=== PATIENT | male | born 1960 | race Caucasian/White ===

== ENCOUNTER 2019-02-03 09:15 | Inpatient (IN) ==
[2019-01-21 10:08] LABS: Basophils # 0.1 10*3/uL (0.0-0.2); Basophils % 0.7 % (0.0-0.8); Eosinophils # 0.2 10*3/uL (0.0-0.87); Hematocrit 38.5 VOL% (42.0-52.0); Hemoglobin 12.5 GM/DL (14.0-18.0); Immature Granulocytes % 0.5 %; Immature Granulocytes Absolute 0.05 #; Lymphocytes # 0.9 10*3/uL (1.4-4.0); Lymphocytes % 9.1 % (21.2-54.2); Mean Corpuscular HGB Conc 32.5 GM/DL (32-36); Mean Corpuscular Volume 91.9 FL (87-102); Mean Platelet Volume 9.8 FL (9.6-12.0); Monocytes % 6.8 % (1.7-12.7); Neutrophils % 80.9 % (38.7-73.9); Platelet Count 376 T/CUMM (130-400); Red Blood Count 4.19 MC/CUMM (3.8-5.5); Red Cell Distribution Width 13.6 % (9.3-17.3); White Blood Count 9.9 T/CUMM (4-12)
[2019-01-21 11:01] LABS: Calcium 9.1 MG/DL (8.5-10.1); Osmolality,Calculated 284.9 MOS/KG (273-304)
[~2019-02-03 09:15] MED LIST: CLINDAMYCIN INJ 600 MG in PREMIX 1 EACH IV ONE
[2019-02-03] MEDS ORDERED: ALBUTEROL/IPRATROPIUM 3 ML NEB RESP TX ONE (09:40)
[2019-02-03] MEDS ORDERED: FAMOTIDINE 20 MG TABLET PO ONE (09:40)
[2019-02-03] MEDS ORDERED: DIAZEPAM 5 MG TABLET PO ONE (09:40)
[2019-02-03] MEDS ORDERED: CLINDAMYCIN INJ 50 ML IV ONE (09:59)
[2019-02-03] MEDS ORDERED: SODIUM CHLORIDE 0.9% 250 ML IV SCH (10:00)
[2019-02-03] MEDS ORDERED: FAMOTIDINE 20 MG TABLET ONE (10:00)
[2019-02-03] MEDS ORDERED: DIAZEPAM 5 MG TABLET ONE (10:00)
[2019-02-03] MEDS ORDERED: ALBUTEROL 2.5 MG/3 ML NEB RESP TX PRN (13:50)
[2019-02-03] MEDS ORDERED: DEXTROSE 50% 25 GM/50 ML VIAL IV PRN (13:51)
[2019-02-03] MEDS ORDERED: GLUCAGON 1 MG VIAL IM PRN (13:51)
[2019-02-03] MEDS ORDERED: LIDOCAINE 2% TOP JELLY 20 ML VIAL INTRAURETH ONE (13:58)
[2019-02-03] MEDS ORDERED: PROPOFOL 200 MG/20 ML VIAL IV ONE (14:00)
[2019-02-03] MEDS ORDERED: ONDANSETRON 4 MG/2 ML VIAL ONE ×2 (14:01→14:04)
[2019-02-03] MEDS ORDERED: SUCCINYLCHOLINE 200 MG/10 ML VIAL ONE (14:01)
[2019-02-03] MEDS ORDERED: MIDAZOLAM 2 MG/2 ML VIAL ONE (14:01)
[2019-02-03] MEDS ORDERED: GLYCOPYRROLATE 0.4 MG/2 ML VIAL ONE (14:01)
[2019-02-03] MEDS ORDERED: NEOSTIGMINE 10 MG/10 ML VIAL ONE (14:01)
[2019-02-03] MEDS ORDERED: ROCURONIUM 100 MG/10 ML VIAL IV ONE (14:01)
[2019-02-03] MEDS ORDERED: fentaNYL 100 MCG/2 ML VIAL ONE (14:01)
[2019-02-03] MEDS ORDERED: ePHEDrine 50 MG/ML AMP ONE (14:02)
[2019-02-03] MEDS ORDERED: SEVOFLURANE 1 UNIT/15 MINUTE INH ONE (14:02)
[2019-02-03] MEDS ORDERED: MORPHINE 10 MG/1 ML VIAL ONE (14:04)
[2019-02-03] MEDS: MORPHINE 10 MG/1 ML VIAL IV PRN ×2 (14:08→14:20)
[2019-02-03 14:11] LABS: Hematocrit 32.8 VOL% (42.0-52.0); Hemoglobin 10.5 GM/DL (14.0-18.0)
[2019-02-03] MEDS ORDERED: BELLADONNA/OPIUM 30 MG SUPP RECTAL ONE ×2 (14:14→14:20)
[2019-02-03] MEDS ORDERED: ONDANSETRON 4 MG/2 ML VIAL IV PRN (14:19)
[2019-02-03] MEDS ORDERED: BELLADONNA/OPIUM 30 MG SUPP RECTAL PRN (14:39)
[2019-02-03 15:42] LABS: Calcium 8.3 MG/DL (8.5-10.1); Osmolality,Calculated 279.8 MOS/KG (273-304)
[2019-02-03] MEDS: ACETAMINOPHEN 325 MG TABLET PO SCH (17:28)
[2019-02-03] MEDS: BUDESONIDE/FORMOTEROL 160-4.5 INHALER 6 GM INH SCH (22:10)
[2019-02-03] MEDS: INSULIN LISPRO 100 UNIT/ML SUBCUT SCH (22:12)
[2019-02-04] MEDS: SACUBITRIL/VALSARTAN 49-51 MG TABLET PO SCH ×2 (00:41→08:37)
[2019-02-04] MEDS: METOPROLOL SUCCINATE XL 50 MG TABLET PO SCH ×2 (00:41→08:37)
[2019-02-04 05:33] LABS: Hematocrit 33.6 VOL% (42.0-52.0); Hemoglobin 10.8 GM/DL (14.0-18.0)
[2019-02-04 05:50] LABS: Calcium 8.6 MG/DL (8.5-10.1); Osmolality,Calculated 279.2 MOS/KG (273-304)
[2019-02-04] MEDS: INSULIN LISPRO 100 UNIT/ML SUBCUT SCH ×4 (08:35→20:49)
[2019-02-04] MEDS: ACETAMINOPHEN 325 MG TABLET PO SCH ×5 (08:36→20:58)
[2019-02-04] MEDS: ASPIRIN EC 81 MG TABLET PO SCH (08:36)
[2019-02-04] MEDS: ROSUVASTATIN 20 MG TABLET PO SCH (08:36)
[2019-02-04] MEDS: BUDESONIDE/FORMOTEROL 160-4.5 INHALER 6 GM INH SCH ×2 (08:37→20:49)
[2019-02-04] MEDS ORDERED: SODIUM CHLORIDE 0.9% 500 ML IV ONE ×3 (08:45→20:24)
[2019-02-04] MEDS ORDERED: FUROSEMIDE 20 MG TABLET PO SCH (09:00)
[2019-02-04] MEDS ORDERED: SPIRONOLACTONE 25 MG TABLET PO SCH (09:00)
[2019-02-04] MEDS ORDERED: FUROSEMIDE 40 MG/4 ML VIAL IV SCH (13:39)
[2019-02-04] MEDS ORDERED: METOPROLOL SUCCINATE XL 50 MG TABLET PO SCH ×2 (13:39→21:00)
[2019-02-04] MEDS: ONDANSETRON 4 MG/2 ML VIAL IV PRN (21:46)
[2019-02-05] MEDS: SACUBITRIL/VALSARTAN 49-51 MG TABLET PO SCH (01:58)
[2019-02-05] MEDS: NITROFURANTOIN MACRO/MONO 100 MG CAPSULE PO SCH ×3 (02:14→21:02)
[2019-02-05] MEDS: ACETAMINOPHEN 325 MG TABLET PO SCH ×4 (02:14→21:02)
[2019-02-05] MEDS: ONDANSETRON 4 MG/2 ML VIAL IV PRN ×2 (04:44→14:20)
[2019-02-05] MEDS ORDERED: SODIUM CHLORIDE 0.9% 500 ML IV ONE (05:37)
[2019-02-05 05:54] LABS: Basophils % 0.2 % (0.0-0.8); Eosinophils # 0.1 10*3/uL (0.0-0.87); Eosinophils % 0.4 % (0.00-10.9); Hematocrit 33.7 VOL% (42.0-52.0); Hemoglobin 10.6 GM/DL (14.0-18.0); Immature Granulocytes % 0.6 %; Immature Granulocytes Absolute 0.09 #; Mean Corpuscular HGB Conc 31.5 GM/DL (32-36); Mean Corpuscular Volume 96.8 FL (87-102); Mean Platelet Volume 10.6 FL (9.6-12.0); Monocytes % 9.1 % (1.7-12.7); Neutrophils % 82.7 % (38.7-73.9); Platelet Count 354 T/CUMM (130-400); Red Blood Count 3.48 MC/CUMM (3.8-5.5); Red Cell Distribution Width 14.1 % (9.3-17.3); White Blood Count 13.9 T/CUMM (4-12)
[2019-02-05] MEDS: INSULIN LISPRO 100 UNIT/ML SUBCUT SCH ×2 (06:16→09:09)
[2019-02-05 06:19] LABS: Calcium 8.6 MG/DL (8.5-10.1); Osmolality,Calculated 292.9 MOS/KG (273-304)
[2019-02-05 06:21] LABS: CKMB % 7.2 %
[2019-02-05 06:23] LABS: Troponin I 2.41 NG/ML (0.00-0.045)
[2019-02-05] MEDS ORDERED: CALCIUM GLUCONATE 2,000 MG in SODIUM CHLORIDE 0.9% 100 ML IV ONE (06:30)
[2019-02-05] MEDS ORDERED: MEROPENEM 1,000 MG in SODIUM CHLORIDE 0.9% 100 ML IV SCH ×3 (07:00→20:30)
[2019-02-05] MEDS ORDERED: SODIUM PHOSPHATE IV PRN (07:16)
[2019-02-05] MEDS ORDERED: INSULIN REGULAR 100 UNIT/ML IV ONE (07:16)
[2019-02-05] MEDS ORDERED: SODIUM BICARB INJ 100 MEQ in STERILE WATER INJ 400 ML IV PRN (07:16)
[2019-02-05] MEDS ORDERED: MAGNESIUM SULF RIDER 2 GM in PREMIX 1 EACH IV PRN (07:16)
[2019-02-05] MEDS ORDERED: SODIUM CHLORIDE 0.9% 1,000 ML IV ONE (07:16)
[2019-02-05] MEDS ORDERED: MAGNESIUM SULF RIDER 4 GM in PREMIX 1 EACH IV PRN (07:16)
[2019-02-05] MEDS ORDERED: POTASSIUM CHLORIDE RIDER 10 MEQ in PREMIX 1 EACH IV PRN (07:16)
[2019-02-05] MEDS ORDERED: SODIUM CHLORIDE 0.9% IV PRN (07:16)
[2019-02-05] MEDS ORDERED: DEXTROSE 50% 25 GM/50 ML SYRINGE IV PRN ×2 (07:16)
[2019-02-05] MEDS ORDERED: INSULIN REGULAR DRIP 100 ML IV SCH (07:30)
[2019-02-05] MEDS ORDERED: SODIUM POLYSTYRENE SULFATE 15 GM/60 ML BOTTLE PO STA (07:36)
[2019-02-05] MEDS ORDERED: CLOPIDOGREL 75 MG TABLET PO ONE ×2 (07:43)
[2019-02-05 07:53] LABS: Calcium 8.2 MG/DL (8.5-10.1); Osmolality,Calculated 293.9 MOS/KG (273-304)
[2019-02-05] MEDS ORDERED: SODIUM BICARB INJ 150 MEQ in STERILE WATER INJ 850 ML IV SCH (08:00)
[2019-02-05] MEDS ORDERED: SODIUM CHLORIDE 0.9% 1,000 ML IV SCH ×2 (08:17→12:17)
[2019-02-05 08:30] LABS: Calcium 8.3 MG/DL (8.5-10.1); Osmolality,Calculated 295.8 MOS/KG (273-304)
[2019-02-05] MEDS: SODIUM CHLORIDE 0.9% 1,000 ML IV SCH ×2 (09:00→22:25)
[2019-02-05] MEDS: ASPIRIN EC 81 MG TABLET PO SCH (09:56)
[2019-02-05] MEDS: ROSUVASTATIN 20 MG TABLET PO SCH (09:56)
[2019-02-05] MEDS: METOPROLOL SUCCINATE XL 25 MG TABLET PO SCH ×2 (09:57→21:02)
[2019-02-05] MEDS: BUDESONIDE/FORMOTEROL 160-4.5 INHALER 6 GM INH SCH ×2 (09:57→21:08)
[2019-02-05 13:40] LABS: Calcium 8.3 MG/DL (8.5-10.1); Osmolality,Calculated 293.1 MOS/KG (273-304)
[2019-02-05 13:42] LABS: CKMB % 6.4 %
[2019-02-05 13:47] LABS: Troponin I 22.6 NG/ML (0.00-0.045)
[2019-02-05] MEDS: DEXTROSE 5% NACL 0.9% 1,000 ML IV SCH (15:09)
[2019-02-05 16:06] LABS: Calcium 8.5 MG/DL (8.5-10.1); Osmolality,Calculated 287.1 MOS/KG (273-304)
[2019-02-05] MEDS: INSULIN GLARGINE 100 UNIT/ML SUBCUT SCH (17:07)
[2019-02-05 20:33] LABS: Calcium 8.4 MG/DL (8.5-10.1); Osmolality,Calculated 287.5 MOS/KG (273-304)
[2019-02-05] MEDS: PROMETHAZINE 25 MG/1 ML VIAL IM PRN (20:47)
[2019-02-05 23:48] LABS: Calcium 8.6 MG/DL (8.5-10.1); Osmolality,Calculated 288.5 MOS/KG (273-304)
[2019-02-06] MEDS: INSULIN LISPRO 100 UNIT/ML SUBCUT SCH ×6 (00:06→20:54)
[2019-02-06] MEDS ORDERED: SODIUM CHLORIDE 0.45% 1,000 ML IV SCH ×2 (00:17→14:00)
[2019-02-06] MEDS: SODIUM CHLORIDE 0.45% 1,000 ML IV SCH ×2 (00:36→13:44)
[2019-02-06] MEDS: ACETAMINOPHEN 325 MG TABLET PO SCH ×4 (01:07→20:07)
[2019-02-06 03:33] LABS: Calcium 8.3 MG/DL (8.5-10.1); Osmolality,Calculated 290.5 MOS/KG (273-304)
[2019-02-06] MEDS: DEXTROSE 5% NACL 0.9% 1,000 ML IV SCH ×2 (04:31→17:05)
[2019-02-06] MEDS: ONDANSETRON 4 MG/2 ML VIAL IV PRN (04:53)
[2019-02-06 08:13] LABS: Basophils % 0.2 % (0.0-0.8); Eosinophils # 0.1 10*3/uL (0.0-0.87); Eosinophils % 0.3 % (0.00-10.9); Hematocrit 33.5 VOL% (42.0-52.0); Immature Granulocytes % 0.4 %; Immature Granulocytes Absolute 0.06 #; Lymphocytes # 1.2 10*3/uL (1.4-4.0); Lymphocytes % 7.7 % (21.2-54.2); Mean Corpuscular HGB Conc 32.8 GM/DL (32-36); Mean Corpuscular Volume 92.3 FL (87-102); Mean Platelet Volume 10.1 FL (9.6-12.0); Monocytes % 9.5 % (1.7-12.7); Neutrophils % 81.9 % (38.7-73.9); Platelet Count 344 T/CUMM (130-400); Red Blood Count 3.63 MC/CUMM (3.8-5.5); Red Cell Distribution Width 13.9 % (9.3-17.3); White Blood Count 14.9 T/CUMM (4-12)
[2019-02-06] MEDS: ROSUVASTATIN 20 MG TABLET PO SCH (09:03)
[2019-02-06] MEDS: METOPROLOL SUCCINATE XL 25 MG TABLET PO SCH ×2 (09:03→20:06)
[2019-02-06] MEDS: CLOPIDOGREL 75 MG TABLET PO SCH (09:04)
[2019-02-06] MEDS: ASPIRIN EC 81 MG TABLET PO SCH (09:04)
[2019-02-06] MEDS: NITROFURANTOIN MACRO/MONO 100 MG CAPSULE PO SCH (09:05)
[2019-02-06] MEDS: INSULIN GLARGINE 100 UNIT/ML SUBCUT SCH (09:06)
[2019-02-06] MEDS: BUDESONIDE/FORMOTEROL 160-4.5 INHALER 6 GM INH SCH ×2 (09:07→20:07)
[2019-02-06] MEDS: PROMETHAZINE 25 MG/1 ML VIAL IM PRN ×2 (09:40→21:44)
[2019-02-06 11:55] LABS: CKMB % 2.4 %
[2019-02-06 12:05] LABS: Troponin I 24.3 NG/ML (0.00-0.045)
[2019-02-06] MEDS: SODIUM CHLORIDE 0.9% 1,000 ML IV SCH (12:33)
[2019-02-06] MEDS: diphenhydrAMINE 50 MG/1 ML VIAL IV PRN ×2 (14:00→20:07)
[2019-02-06] MEDS: ISOSORBIDE DINITRATE 20 MG TABLET PO SCH ×2 (15:47→20:07)
[2019-02-06] MEDS: hydrALAZINE 10 MG TABLET PO SCH ×2 (15:47→20:07)
[2019-02-06] MEDS ORDERED: ALUMINUM/MAGNES/SIMETH MAX STR 30 ML UDCUP PO PRN (23:47)
[2019-02-06] MEDS ORDERED: ALUM/MAG/SIMETH/LIDO VISC 1:1 30 ML BOTTLE PO ONE (23:47)
[2019-02-07] MEDS: INSULIN LISPRO 100 UNIT/ML SUBCUT SCH ×6 (00:05→20:27)
[2019-02-07] MEDS: ONDANSETRON 4 MG/2 ML VIAL IV PRN (01:43)
[2019-02-07] MEDS: diphenhydrAMINE 50 MG/1 ML VIAL IV PRN (01:44)
[2019-02-07] MEDS ORDERED: PANTOPRAZOLE 40 MG VIAL IV ONE (01:55)
[2019-02-07] MEDS ORDERED: FAMOTIDINE 20 MG/2 ML VIAL IV ONE (01:55)
[2019-02-07] MEDS ORDERED: ONDANSETRON 4 MG/2 ML VIAL IV PRN (01:59)
[2019-02-07] MEDS: ACETAMINOPHEN 325 MG TABLET PO SCH ×4 (02:56→20:27)
[2019-02-07 05:56] LABS: Basophils % 0.1 % (0.0-0.8); Hematocrit 31.3 VOL% (42.0-52.0); Hemoglobin 10.5 GM/DL (14.0-18.0); Immature Granulocytes % 0.3 %; Immature Granulocytes Absolute 0.04 #; Lymphocytes # 0.6 10*3/uL (1.4-4.0); Lymphocytes % 5.1 % (21.2-54.2); Mean Corpuscular HGB Conc 33.5 GM/DL (32-36); Mean Corpuscular Volume 91.8 FL (87-102); Mean Platelet Volume 10.3 FL (9.6-12.0); Monocytes % 5.4 % (1.7-12.7); Neutrophils % 89.1 % (38.7-73.9); Platelet Count 323 T/CUMM (130-400); Red Blood Count 3.41 MC/CUMM (3.8-5.5); Red Cell Distribution Width 14.2 % (9.3-17.3); White Blood Count 12.4 T/CUMM (4-12)
[2019-02-07 06:11] LABS: Calcium 8.5 MG/DL (8.5-10.1); Osmolality,Calculated 291.3 MOS/KG (273-304)
[2019-02-07] MEDS ORDERED: LOSARTAN 25 MG TABLET PO SCH (09:00)
[2019-02-07] MEDS: DEXTROSE 5% NACL 0.9% 1,000 ML IV SCH (09:20)
[2019-02-07] MEDS: ISOSORBIDE DINITRATE 20 MG TABLET PO SCH ×3 (09:22→20:28)
[2019-02-07] MEDS: METOPROLOL SUCCINATE XL 25 MG TABLET PO SCH ×2 (09:22→20:28)
[2019-02-07] MEDS: ROSUVASTATIN 20 MG TABLET PO SCH (09:23)
[2019-02-07] MEDS: hydrALAZINE 10 MG TABLET PO SCH ×3 (09:23→20:27)
[2019-02-07] MEDS: FAMOTIDINE 20 MG/2 ML VIAL IV SCH ×2 (09:23→20:28)
[2019-02-07] MEDS: PANTOPRAZOLE 40 MG TABLET PO SCH (09:24)
[2019-02-07] MEDS: ASPIRIN EC 81 MG TABLET PO SCH (09:24)
[2019-02-07] MEDS: INSULIN GLARGINE 100 UNIT/ML SUBCUT SCH (09:26)
[2019-02-07] MEDS: BUDESONIDE/FORMOTEROL 160-4.5 INHALER 6 GM INH SCH ×2 (09:28→20:28)
[2019-02-07] MEDS: CLOPIDOGREL 75 MG TABLET PO SCH (09:28)
[2019-02-07] MEDS ORDERED: FUROSEMIDE 40 MG/4 ML VIAL IV ONE (14:13)
[2019-02-08] MEDS: INSULIN LISPRO 100 UNIT/ML SUBCUT SCH ×6 (01:19→20:35)
[2019-02-08] MEDS: ACETAMINOPHEN 325 MG TABLET PO SCH ×4 (03:22→20:36)
[2019-02-08 03:47] LABS: Basophils % 0.1 % (0.0-0.8); Eosinophils % 0.2 % (0.00-10.9); Hematocrit 32.3 VOL% (42.0-52.0); Hemoglobin 10.4 GM/DL (14.0-18.0); Immature Granulocytes % 0.5 %; Immature Granulocytes Absolute 0.07 #; Lymphocytes # 1.4 10*3/uL (1.4-4.0); Lymphocytes % 10.5 % (21.2-54.2); Mean Corpuscular HGB Conc 32.2 GM/DL (32-36); Mean Corpuscular Volume 93.4 FL (87-102); Mean Platelet Volume 10.1 FL (9.6-12.0); Monocytes % 8.2 % (1.7-12.7); Neutrophils % 80.5 % (38.7-73.9); Platelet Count 339 T/CUMM (130-400); Red Blood Count 3.46 MC/CUMM (3.8-5.5); Red Cell Distribution Width 14.3 % (9.3-17.3); White Blood Count 13.8 T/CUMM (4-12)
[2019-02-08 04:03] LABS: Calcium 8.4 MG/DL (8.5-10.1); Osmolality,Calculated 291.3 MOS/KG (273-304)
[2019-02-08] MEDS: ISOSORBIDE DINITRATE 20 MG TABLET PO SCH ×3 (09:38→20:37)
[2019-02-08] MEDS: CLOPIDOGREL 75 MG TABLET PO SCH (09:38)
[2019-02-08] MEDS: ASPIRIN EC 81 MG TABLET PO SCH (09:38)
[2019-02-08] MEDS: ROSUVASTATIN 20 MG TABLET PO SCH (09:38)
[2019-02-08] MEDS: hydrALAZINE 10 MG TABLET PO SCH ×3 (09:38→20:37)
[2019-02-08] MEDS: METOPROLOL SUCCINATE XL 25 MG TABLET PO SCH ×2 (09:38→20:37)
[2019-02-08] MEDS: FUROSEMIDE 40 MG/4 ML VIAL IV SCH (09:39)
[2019-02-08] MEDS: PANTOPRAZOLE 40 MG TABLET PO SCH (09:39)
[2019-02-08] MEDS: FAMOTIDINE 20 MG/2 ML VIAL IV SCH ×2 (09:40→20:37)
[2019-02-08] MEDS: BUDESONIDE/FORMOTEROL 160-4.5 INHALER 6 GM INH SCH ×2 (10:42→20:50)
[2019-02-09] MEDS: INSULIN LISPRO 100 UNIT/ML SUBCUT SCH ×6 (00:30→21:17)
[2019-02-09] MEDS: ACETAMINOPHEN 325 MG TABLET PO SCH ×4 (02:01→21:15)
[2019-02-09 05:25] LABS: Basophils % 0.3 % (0.0-0.8); Eosinophils # 0.2 10*3/uL (0.0-0.87); Eosinophils % 1.9 % (0.00-10.9); Hemoglobin 9.6 GM/DL (14.0-18.0); Immature Granulocytes % 0.4 %; Immature Granulocytes Absolute 0.04 #; Lymphocytes # 2.2 10*3/uL (1.4-4.0); Lymphocytes % 20.6 % (21.2-54.2); Mean Corpuscular Volume 93.8 FL (87-102); Mean Platelet Volume 9.9 FL (9.6-12.0); Monocytes % 8.8 % (1.7-12.7); Platelet Count 303 T/CUMM (130-400); White Blood Count 10.6 T/CUMM (4-12)
[2019-02-09 05:39] LABS: Calcium 8.1 MG/DL (8.5-10.1); Osmolality,Calculated 289.4 MOS/KG (273-304)
[2019-02-09] MEDS: METOPROLOL SUCCINATE XL 25 MG TABLET PO SCH ×2 (08:35→21:16)
[2019-02-09] MEDS: ROSUVASTATIN 20 MG TABLET PO SCH (08:35)
[2019-02-09] MEDS: ISOSORBIDE DINITRATE 20 MG TABLET PO SCH ×3 (08:36→21:16)
[2019-02-09] MEDS: PANTOPRAZOLE 40 MG TABLET PO SCH (08:36)
[2019-02-09] MEDS: CLOPIDOGREL 75 MG TABLET PO SCH (08:36)
[2019-02-09] MEDS: hydrALAZINE 10 MG TABLET PO SCH ×3 (08:36→21:16)
[2019-02-09] MEDS: BUDESONIDE/FORMOTEROL 160-4.5 INHALER 6 GM INH SCH ×2 (08:37→21:19)
[2019-02-09] MEDS: ASPIRIN EC 81 MG TABLET PO SCH (08:38)
[2019-02-09] MEDS: INSULIN GLARGINE 100 UNIT/ML SUBCUT SCH (08:38)
[2019-02-09] MEDS: FUROSEMIDE 40 MG/4 ML VIAL IV SCH (08:42)
[2019-02-09] MEDS: FAMOTIDINE 20 MG/2 ML VIAL IV SCH ×2 (08:42→21:16)
[2019-02-10] MEDS: ACETAMINOPHEN 325 MG TABLET PO SCH ×4 (01:08→20:55)
[2019-02-10] MEDS: FAMOTIDINE 20 MG/2 ML VIAL IV SCH ×2 (09:05→21:17)
[2019-02-10] MEDS: INSULIN LISPRO 100 UNIT/ML SUBCUT SCH ×4 (09:06→21:18)
[2019-02-10] MEDS: INSULIN GLARGINE 100 UNIT/ML SUBCUT SCH (09:06)
[2019-02-10] MEDS: FUROSEMIDE 40 MG/4 ML VIAL IV SCH (09:07)
[2019-02-10] MEDS: ROSUVASTATIN 20 MG TABLET PO SCH (09:07)
[2019-02-10] MEDS: ASPIRIN EC 81 MG TABLET PO SCH (09:07)
[2019-02-10] MEDS: METOPROLOL SUCCINATE XL 25 MG TABLET PO SCH ×2 (09:07→21:17)
[2019-02-10] MEDS: ISOSORBIDE DINITRATE 20 MG TABLET PO SCH ×3 (09:08→21:17)
[2019-02-10] MEDS: CLOPIDOGREL 75 MG TABLET PO SCH (09:08)
[2019-02-10] MEDS: hydrALAZINE 10 MG TABLET PO SCH ×3 (09:08→21:17)
[2019-02-10] MEDS: PANTOPRAZOLE 40 MG TABLET PO SCH (09:13)
[2019-02-10] MEDS: BUDESONIDE/FORMOTEROL 160-4.5 INHALER 6 GM INH SCH ×2 (09:14→21:20)
[2019-02-10 11:10] LABS: Calcium 8.1 MG/DL (8.5-10.1); Osmolality,Calculated 300.2 MOS/KG (273-304)
[2019-02-10] MEDS ORDERED: INSULIN REGULAR 100 UNIT/ML SUBCUT ONE ×2 (12:04→13:44)
[2019-02-10] MEDS: SODIUM CHLORIDE 0.9% 1,000 ML IV SCH (12:56)
[2019-02-10 14:03] LABS: Calcium 8.3 MG/DL (8.5-10.1); Osmolality,Calculated 301.1 MOS/KG (273-304)
[2019-02-10] MEDS ORDERED: POTASSIUM CHLORIDE 20 MEQ TABLET PO ONE (14:32)
[2019-02-10] MEDS ORDERED: POTASSIUM CHLORIDE RIDER 10 MEQ in PREMIX 1 EACH IV PRN (14:33)
[2019-02-10 16:43] LABS: Calcium 8.4 MG/DL (8.5-10.1); Osmolality,Calculated 298.8 MOS/KG (273-304)
[2019-02-11] MEDS: SODIUM CHLORIDE 0.9% 1,000 ML IV SCH (02:44)
[2019-02-11] MEDS: ACETAMINOPHEN 325 MG TABLET PO SCH ×2 (02:44→10:28)
[2019-02-11 05:28] LABS: Calcium 8.3 MG/DL (8.5-10.1)
[2019-02-11] MEDS ORDERED: INSULIN GLARGINE 100 UNIT/ML SUBCUT SCH (09:00)
[2019-02-11] MEDS: INSULIN LISPRO 100 UNIT/ML SUBCUT SCH ×2 (09:15→12:25)
[2019-02-11] MEDS: METOPROLOL SUCCINATE XL 25 MG TABLET PO SCH (10:29)
[2019-02-11] MEDS: FAMOTIDINE 20 MG/2 ML VIAL IV SCH (10:29)
[2019-02-11] MEDS: CLOPIDOGREL 75 MG TABLET PO SCH (10:30)
[2019-02-11] MEDS: hydrALAZINE 10 MG TABLET PO SCH (10:30)
[2019-02-11] MEDS: ISOSORBIDE DINITRATE 20 MG TABLET PO SCH (10:30)
[2019-02-11] MEDS: PANTOPRAZOLE 40 MG TABLET PO SCH (10:30)
[2019-02-11] MEDS: ASPIRIN EC 81 MG TABLET PO SCH (10:30)
[2019-02-11] MEDS: ROSUVASTATIN 20 MG TABLET PO SCH (10:30)
[2019-02-11] MEDS ORDERED: POTASSIUM CHLORIDE 20 MEQ TABLET PO ONE (10:33)
[2019-02-11] MEDS: BUDESONIDE/FORMOTEROL 160-4.5 INHALER 6 GM INH SCH (10:34)
[2019-02-11 11:52] VITALS: BP 118/65
[2019-02-12] MEDS ORDERED: ISOSORBIDE MONONITRATE 30 MG TABLET PO SCH (09:00)
[2019-02-12] MEDS ORDERED: POTASSIUM CHLORIDE 20 MEQ TABLET PO SCH (09:00)
== END 2019-02-11 16:01 | disposition home or self-care (01) | DRG 668 ==
LOC: N.OR 09:15 → N.SDSINP 09:16 → N.TELEN 15:09 → N.CC 02-05 07:37 → N.TELEN 02-08 01:36
PROVIDERS: ADMIT Surgery; ATTEND Surgery

== ENCOUNTER 2019-02-20 13:00 | Inpatient (IN) ==
[2019-02-20 13:46] LABS: Basophils % 0.3 % (0.0-0.8); Hematocrit 34.1 VOL% (42.0-52.0); Immature Granulocytes % 0.5 %; Immature Granulocytes Absolute 0.06 #; Lymphocytes # 0.9 10*3/uL (1.4-4.0); Lymphocytes % 7.3 % (21.2-54.2); Mean Corpuscular HGB Conc 32.3 GM/DL (32-36); Mean Platelet Volume 9.3 FL (9.6-12.0); Monocytes % 10.7 % (1.7-12.7); Neutrophils % 81.2 % (38.7-73.9); Platelet Count 399 T/CUMM (130-400); Red Blood Count 3.59 MC/CUMM (3.8-5.5); Red Cell Distribution Width 14.7 % (9.3-17.3)
[2019-02-20] MEDS ORDERED: FUROSEMIDE 40 MG/4 ML VIAL IV STA (14:10)
[2019-02-20 14:11] LABS: Alanine Aminotransferase 51 U/L (16-61); Albumin 3.3 G/DL (3.4-5.0); Alkaline Phosphatase 88 U/L (45-117); Aspartate Amino Transferase 53 U/L (0-37); Blood Urea Nitrogen 23 MG/DL (7-18); Calcium 8.9 MG/DL (8.5-10.1); Glucose 64 MG/DL (74-106); Osmolality,Calculated 267.4 MOS/KG (273-304); Total Protein 7.5 G/DL (6.4-8.3)
[2019-02-20] MEDS ORDERED: ENOXAPARIN 60 MG/0.6 ML SYRINGE SUBCUT STA (14:15)
[2019-02-20] MEDS ORDERED: NITROGLYCERIN 2% OINT 1 INCH/GM PACK TOP STA (14:15)
[2019-02-20] MEDS ORDERED: DOCUSATE SODIUM 100 MG CAPSULE PO PRN (15:27)
[2019-02-20] MEDS ORDERED: ACETAMINOPHEN 325 MG TABLET PO PRN (15:27)
[2019-02-20] MEDS ORDERED: ONDANSETRON 4 MG/2 ML VIAL IV PRN (15:27)
[2019-02-20] MEDS ORDERED: LACTULOSE 20 GM/30 ML UDCUP PO PRN (15:27)
[2019-02-20] MEDS ORDERED: MAGNESIUM SULF RIDER 4 GM in PREMIX 1 EACH IV PRN (15:27)
[2019-02-20] MEDS ORDERED: NICOTINE 21 MG/24 HR PATCH TRANSDERM PRN (15:27)
[2019-02-20] MEDS ORDERED: guaiFENesin/DM ER 600-30 MG TABLET PO PRN (15:27)
[2019-02-20] MEDS ORDERED: MAGNESIUM SULF RIDER 2 GM in PREMIX 1 EACH IV PRN (15:27)
[2019-02-20] MEDS ORDERED: PROMETHAZINE 25 MG TABLET PO PRN (15:27)
[2019-02-20] MEDS ORDERED: diphenhydrAMINE CAP 25 MG CAPSULE PO PRN (15:27)
[2019-02-20] MEDS ORDERED: ZALEPLON 5 MG CAPSULE PO PRN (15:27)
[2019-02-20] MEDS ORDERED: SODIUM CHLORIDE 0.9% 1,000 ML IV SCH (15:30)
[2019-02-20] MEDS ORDERED: DEXTROSE 50% 25 GM/50 ML VIAL IV STA (15:47)
[2019-02-20] MEDS ORDERED: DEXTROSE 50% 25 GM/50 ML SYRINGE IV ONE (15:52)
[2019-02-20] MEDS ORDERED: ALBUTEROL 2.5 MG/3 ML NEB RESP TX PRN (16:04)
[2019-02-20] MEDS ORDERED: OXYBUTYNIN 5 MG TABLET PO PRN (16:04)
[2019-02-20] MEDS ORDERED: ALBUTEROL/IPRATROPIUM 3 ML NEB RESP TX PRN (16:19)
[2019-02-20] MEDS ORDERED: AZITHROMYCIN INJ 500 MG in SODIUM CHLORIDE 0.9% 250 ML IV SCH (16:30)
[2019-02-20] MEDS: INSULIN LISPRO 100 UNIT/ML SUBCUT SCH ×2 (17:39→21:53)
[2019-02-20] MEDS: CLOPIDOGREL 75 MG TABLET PO SCH (17:39)
[2019-02-20] MEDS: AZITHROMYCIN INJ 500 MG in SODIUM CHLORIDE 0.9% 250 ML IV SCH (19:19)
[2019-02-20] MEDS ORDERED: METOPROLOL SUCCINATE XL 25 MG TABLET PO SCH (21:00)
[2019-02-20] MEDS ORDERED: SACUBITRIL/VALSARTAN 49-51 MG TABLET PO SCH (21:00)
[2019-02-20] MEDS: DOCUSATE SODIUM 100 MG CAPSULE PO SCH (21:39)
[2019-02-20] MEDS: ENOXAPARIN 40 MG/0.4 ML SYRINGE SUBCUT SCH (21:40)
[2019-02-20] MEDS: INSULIN NPH/REGULAR 70/30 100 UNIT/ML SUBCUT SCH (21:40)
[2019-02-20] MEDS: BUDESONIDE/FORMOTEROL 160-4.5 INHALER 6 GM INH SCH (21:45)
[2019-02-21 05:46] LABS: Basophils % 0.3 % (0.0-0.8); Eosinophils # 0.1 10*3/uL (0.0-0.87); Eosinophils % 0.6 % (0.00-10.9); Hematocrit 31.8 VOL% (42.0-52.0); Immature Granulocytes % 0.5 %; Immature Granulocytes Absolute 0.07 #; Lymphocytes # 1.1 10*3/uL (1.4-4.0); Lymphocytes % 8.2 % (21.2-54.2); Mean Corpuscular HGB Conc 31.4 GM/DL (32-36); Mean Corpuscular Volume 94.9 FL (87-102); Mean Platelet Volume 9.8 FL (9.6-12.0); Monocytes % 12.8 % (1.7-12.7); Neutrophils % 77.6 % (38.7-73.9); Platelet Count 420 T/CUMM (130-400); Red Blood Count 3.35 MC/CUMM (3.8-5.5); Red Cell Distribution Width 14.7 % (9.3-17.3); White Blood Count 13.6 T/CUMM (4-12)
[2019-02-21 06:30] LABS: Albumin 2.6 G/DL (3.4-5.0); Calcium 8.3 MG/DL (8.5-10.1); Osmolality,Calculated 280.4 MOS/KG (273-304); Total Protein 5.9 G/DL (6.4-8.3)
[2019-02-21] MEDS ORDERED: SODIUM CHLORIDE 0.45% 500 ML IV ONE (07:55)
[2019-02-21] MEDS: INSULIN NPH/REGULAR 70/30 100 UNIT/ML SUBCUT SCH ×4 (08:10→22:03)
[2019-02-21] MEDS: INSULIN LISPRO 100 UNIT/ML SUBCUT SCH ×4 (08:10→22:03)
[2019-02-21] MEDS ORDERED: FUROSEMIDE 40 MG/4 ML VIAL IV SCH (09:00)
[2019-02-21] MEDS ORDERED: SPIRONOLACTONE 25 MG TABLET PO SCH (09:00)
[2019-02-21] MEDS: DOCUSATE SODIUM 100 MG CAPSULE PO SCH ×2 (09:10→22:02)
[2019-02-21] MEDS: POTASSIUM CHLORIDE 20 MEQ TABLET PO SCH (09:10)
[2019-02-21] MEDS: PANTOPRAZOLE 40 MG TABLET PO SCH (09:10)
[2019-02-21] MEDS: ASPIRIN EC 81 MG TABLET PO SCH (09:10)
[2019-02-21] MEDS: CLOPIDOGREL 75 MG TABLET PO SCH (09:10)
[2019-02-21] MEDS: BUDESONIDE/FORMOTEROL 160-4.5 INHALER 6 GM INH SCH ×2 (09:11→22:00)
[2019-02-21 11:33] LABS: Apearance,Urine Slightly Hazy (Clear); Bilirubin,Urine Negative (Negative); Blood, Urine Large mg/dL (Negative); Glucose,Urine (UA) 150 mg/dL (Negative); Hyaline Casts,Urine 29 /LPF (0-3); Ketones,Urine 20 mg/dL (Negative); Mucus,Urine Occasional /LPF (Occasional); Nitrite,Urine Negative (Negative); Protein,Urine Negative; RBC,Urine 171 /HPF (0-4); Squamous Epithelial Cell,Urine Occasional /HPF (0-10); Urine Color Yellow (Yellow); Urine Specific Gravity 1.012 (1.001-1.035); Urine Urobilinogen < 2.0 EU/DL (0.2-1.0); WBC,Urine 7 /HPF (0-6)
[2019-02-21 13:36] LABS: Calcium 7.7 MG/DL (8.5-10.1); Osmolality,Calculated 279.7 MOS/KG (273-304)
[2019-02-21] MEDS: FUROSEMIDE 40 MG/4 ML VIAL IV SCH (17:40)
[2019-02-21] MEDS: AZITHROMYCIN INJ 500 MG in SODIUM CHLORIDE 0.9% 250 ML IV SCH (17:40)
[2019-02-21] MEDS: ENOXAPARIN 40 MG/0.4 ML SYRINGE SUBCUT SCH (22:00)
[2019-02-21] MEDS: SACUBITRIL/VALSARTAN 49-51 MG TABLET PO SCH (22:02)
[2019-02-21] MEDS: METOPROLOL SUCCINATE XL 25 MG TABLET PO SCH (22:02)
[2019-02-22 06:01] LABS: Basophils % 0.2 % (0.0-0.8); Eosinophils # 0.2 10*3/uL (0.0-0.87); Eosinophils % 2.1 % (0.00-10.9); Hematocrit 31.6 VOL% (42.0-52.0); Immature Granulocytes % 0.6 %; Immature Granulocytes Absolute 0.06 #; Lymphocytes # 1.3 10*3/uL (1.4-4.0); Lymphocytes % 12.7 % (21.2-54.2); Mean Corpuscular HGB Conc 31.6 GM/DL (32-36); Mean Corpuscular Volume 93.8 FL (87-102); Mean Platelet Volume 9.7 FL (9.6-12.0); Monocytes % 9.6 % (1.7-12.7); Neutrophils % 74.8 % (38.7-73.9); Platelet Count 423 T/CUMM (130-400); Red Blood Count 3.37 MC/CUMM (3.8-5.5); Red Cell Distribution Width 14.5 % (9.3-17.3); White Blood Count 10.3 T/CUMM (4-12)
[2019-02-22 06:22] LABS: Calcium 8.4 MG/DL (8.5-10.1)
[2019-02-22] MEDS: ASPIRIN EC 81 MG TABLET PO SCH ×2 (07:57→08:12)
[2019-02-22] MEDS: DOCUSATE SODIUM 100 MG CAPSULE PO SCH ×3 (07:57→21:19)
[2019-02-22] MEDS: POTASSIUM CHLORIDE 20 MEQ TABLET PO SCH ×2 (07:57→08:13)
[2019-02-22] MEDS: PANTOPRAZOLE 40 MG TABLET PO SCH ×2 (07:57→08:15)
[2019-02-22] MEDS: INSULIN NPH/REGULAR 70/30 100 UNIT/ML SUBCUT SCH ×5 (07:58→21:20)
[2019-02-22] MEDS: CLOPIDOGREL 75 MG TABLET PO SCH ×2 (07:58→08:13)
[2019-02-22] MEDS: AZITHROMYCIN 250 MG TABLET PO SCH ×2 (07:58→08:12)
[2019-02-22] MEDS: INSULIN LISPRO 100 UNIT/ML SUBCUT SCH ×4 (07:59→21:20)
[2019-02-22] MEDS: SACUBITRIL/VALSARTAN 49-51 MG TABLET PO SCH ×2 (08:12→12:53)
[2019-02-22] MEDS ORDERED: METOPROLOL SUCCINATE XL 25 MG TABLET PO SCH (09:00)
[2019-02-22] MEDS: METOPROLOL SUCCINATE XL 25 MG TABLET PO SCH ×2 (09:58→21:20)
[2019-02-22] MEDS: BUDESONIDE/FORMOTEROL 160-4.5 INHALER 6 GM INH SCH ×2 (11:33→21:20)
[2019-02-22] MEDS: FUROSEMIDE 40 MG/4 ML VIAL IV SCH ×2 (12:53→16:45)
[2019-02-22] MEDS: SPIRONOLACTONE 25 MG TABLET PO SCH ×2 (16:15→21:19)
[2019-02-22] MEDS: ENOXAPARIN 40 MG/0.4 ML SYRINGE SUBCUT SCH (21:18)
[2019-02-23] MEDS: SACUBITRIL/VALSARTAN 49-51 MG TABLET PO SCH ×2 (03:48→22:04)
[2019-02-23 05:23] LABS: Basophils % 0.3 % (0.0-0.8); Eosinophils # 0.3 10*3/uL (0.0-0.87); Eosinophils % 3.8 % (0.00-10.9); Hematocrit 32.3 VOL% (42.0-52.0); Hemoglobin 10.4 GM/DL (14.0-18.0); Immature Granulocytes % 0.3 %; Immature Granulocytes Absolute 0.03 #; Lymphocytes # 1.8 10*3/uL (1.4-4.0); Lymphocytes % 20.7 % (21.2-54.2); Mean Corpuscular HGB Conc 32.2 GM/DL (32-36); Mean Corpuscular Volume 93.4 FL (87-102); Mean Platelet Volume 9.4 FL (9.6-12.0); Monocytes % 8.3 % (1.7-12.7); Neutrophils % 66.6 % (38.7-73.9); Platelet Count 449 T/CUMM (130-400); Red Blood Count 3.46 MC/CUMM (3.8-5.5); Red Cell Distribution Width 14.5 % (9.3-17.3); White Blood Count 8.6 T/CUMM (4-12)
[2019-02-23 05:44] LABS: Calcium 7.9 MG/DL (8.5-10.1); Osmolality,Calculated 283.4 MOS/KG (273-304)
[2019-02-23] MEDS: POTASSIUM CHLORIDE 20 MEQ TABLET PO PRN ×4 (06:01→16:58)
[2019-02-23 08:42] LABS: Eosinophils 1 % (0-10); Hypochromasia 1+; Lymphocytes 20 % (20-55); Platelet Estimate Increased; Segmented Neutrophils 74 % (50-85); Total Cells Counted 100
[2019-02-23] MEDS: INSULIN LISPRO 100 UNIT/ML SUBCUT SCH ×4 (08:55→21:53)
[2019-02-23] MEDS: POTASSIUM CHLORIDE 20 MEQ TABLET PO SCH (08:55)
[2019-02-23] MEDS: PANTOPRAZOLE 40 MG TABLET PO SCH (09:53)
[2019-02-23] MEDS: AZITHROMYCIN 250 MG TABLET PO SCH (09:54)
[2019-02-23] MEDS: DOCUSATE SODIUM 100 MG CAPSULE PO SCH ×3 (09:54→22:04)
[2019-02-23] MEDS: ASPIRIN EC 81 MG TABLET PO SCH (09:54)
[2019-02-23] MEDS: BUDESONIDE/FORMOTEROL 160-4.5 INHALER 6 GM INH SCH ×2 (09:55→22:06)
[2019-02-23] MEDS: CLOPIDOGREL 75 MG TABLET PO SCH (09:55)
[2019-02-23] MEDS: INSULIN NPH/REGULAR 70/30 100 UNIT/ML SUBCUT SCH ×3 (09:55→21:54)
[2019-02-23] MEDS: METOPROLOL SUCCINATE XL 25 MG TABLET PO SCH ×3 (09:56→22:04)
[2019-02-23] MEDS: SPIRONOLACTONE 25 MG TABLET PO SCH ×2 (09:56→22:04)
[2019-02-23] MEDS: FUROSEMIDE 40 MG/4 ML VIAL IV SCH ×3 (09:56→16:58)
[2019-02-23] MEDS: ENOXAPARIN 40 MG/0.4 ML SYRINGE SUBCUT SCH (22:03)
[2019-02-24] MEDS: INSULIN NPH/REGULAR 70/30 100 UNIT/ML SUBCUT SCH ×4 (00:19→20:14)
[2019-02-24 05:32] LABS: Basophils % 0.5 % (0.0-0.8); Eosinophils # 0.2 10*3/uL (0.0-0.87); Eosinophils % 3.2 % (0.00-10.9); Hematocrit 33.2 VOL% (42.0-52.0); Hemoglobin 10.8 GM/DL (14.0-18.0); Immature Granulocytes % 0.1 %; Immature Granulocytes Absolute 0.01 #; Lymphocytes # 1.7 10*3/uL (1.4-4.0); Lymphocytes % 22.9 % (21.2-54.2); Mean Corpuscular HGB Conc 32.5 GM/DL (32-36); Mean Corpuscular Volume 93.5 FL (87-102); Mean Platelet Volume 9.5 FL (9.6-12.0); Monocytes % 7.6 % (1.7-12.7); Neutrophils % 65.7 % (38.7-73.9); Platelet Count 465 T/CUMM (130-400); Red Blood Count 3.55 MC/CUMM (3.8-5.5); Red Cell Distribution Width 14.3 % (9.3-17.3); White Blood Count 7.5 T/CUMM (4-12)
[2019-02-24 05:50] LABS: Calcium 8.4 MG/DL (8.5-10.1); Osmolality,Calculated 284.1 MOS/KG (273-304)
[2019-02-24 05:56] LABS: Hypochromasia 1+; Platelet Estimate Adequate
[2019-02-24] MEDS: BUDESONIDE/FORMOTEROL 160-4.5 INHALER 6 GM INH SCH ×2 (09:10→21:14)
[2019-02-24] MEDS: INSULIN LISPRO 100 UNIT/ML SUBCUT SCH ×4 (09:11→20:15)
[2019-02-24] MEDS: CLOPIDOGREL 75 MG TABLET PO SCH (09:11)
[2019-02-24] MEDS: DOCUSATE SODIUM 100 MG CAPSULE PO SCH ×2 (09:11→21:13)
[2019-02-24] MEDS: ASPIRIN EC 81 MG TABLET PO SCH (09:11)
[2019-02-24] MEDS: PANTOPRAZOLE 40 MG TABLET PO SCH (09:11)
[2019-02-24] MEDS: AZITHROMYCIN 250 MG TABLET PO SCH (09:11)
[2019-02-24] MEDS: SPIRONOLACTONE 25 MG TABLET PO SCH ×2 (09:11→21:15)
[2019-02-24] MEDS: FUROSEMIDE 40 MG/4 ML VIAL IV SCH ×2 (09:12→16:20)
[2019-02-24] MEDS: METOPROLOL SUCCINATE XL 25 MG TABLET PO SCH ×2 (09:12→21:15)
[2019-02-24] MEDS: POTASSIUM CHLORIDE 20 MEQ TABLET PO SCH (09:12)
[2019-02-24] MEDS: SACUBITRIL/VALSARTAN 49-51 MG TABLET PO SCH ×2 (11:40→21:12)
[2019-02-24] MEDS: ENOXAPARIN 40 MG/0.4 ML SYRINGE SUBCUT SCH (21:13)
[2019-02-25] MEDS: INSULIN LISPRO 100 UNIT/ML SUBCUT SCH ×3 (06:50→12:59)
[2019-02-25] MEDS: ASPIRIN EC 81 MG TABLET PO SCH (09:18)
[2019-02-25] MEDS: PANTOPRAZOLE 40 MG TABLET PO SCH (09:18)
[2019-02-25] MEDS: FUROSEMIDE 40 MG/4 ML VIAL IV SCH (09:18)
[2019-02-25] MEDS: DOCUSATE SODIUM 100 MG CAPSULE PO SCH (09:18)
[2019-02-25] MEDS: CLOPIDOGREL 75 MG TABLET PO SCH (09:18)
[2019-02-25] MEDS: BUDESONIDE/FORMOTEROL 160-4.5 INHALER 6 GM INH SCH (09:19)
[2019-02-25] MEDS: AZITHROMYCIN 250 MG TABLET PO SCH (09:19)
[2019-02-25] MEDS: SACUBITRIL/VALSARTAN 49-51 MG TABLET PO SCH (09:19)
[2019-02-25] MEDS: SPIRONOLACTONE 25 MG TABLET PO SCH (09:19)
[2019-02-25] MEDS: METOPROLOL SUCCINATE XL 25 MG TABLET PO SCH (09:19)
[2019-02-25] MEDS: POTASSIUM CHLORIDE 20 MEQ TABLET PO SCH (09:19)
[2019-02-25] MEDS: INSULIN NPH/REGULAR 70/30 100 UNIT/ML SUBCUT SCH (10:09)
[2019-02-25 10:31] LABS: Basophils % 0.4 % (0.0-0.8); Eosinophils # 0.2 10*3/uL (0.0-0.87); Eosinophils % 2.7 % (0.00-10.9); Hematocrit 33.2 VOL% (42.0-52.0); Hemoglobin 11.1 GM/DL (14.0-18.0); Immature Granulocytes % 0.4 %; Immature Granulocytes Absolute 0.03 #; Lymphocytes # 1.1 10*3/uL (1.4-4.0); Lymphocytes % 13.7 % (21.2-54.2); Mean Corpuscular HGB Conc 33.4 GM/DL (32-36); Mean Platelet Volume 9.6 FL (9.6-12.0); Monocytes % 4.1 % (1.7-12.7); Neutrophils % 78.7 % (38.7-73.9); Platelet Count 435 T/CUMM (130-400); Red Blood Count 3.57 MC/CUMM (3.8-5.5); Red Cell Distribution Width 14.3 % (9.3-17.3); White Blood Count 7.7 T/CUMM (4-12)
[2019-02-25 10:57] LABS: Calcium 8.2 MG/DL (8.5-10.1); Osmolality,Calculated 286.7 MOS/KG (273-304)
[2019-02-25 12:16] VITALS: BP 79/32
== END 2019-02-25 15:35 | disposition home or self-care (01) | DRG 280 ==
LOC: N.EDINP 13:00 → N.ED 13:00 → N.TELEN 15:31
PROVIDERS: ADMIT Internal Medicine Cardiovascular Disease; ATTEND Internal Medicine Cardiovascular Disease

== ENCOUNTER 2019-02-28 10:19 | Inpatient (IN) ==
[2019-02-28] MEDS ORDERED: ONDANSETRON 4 MG/2 ML VIAL IV STA (10:41)
[2019-02-28] MEDS ORDERED: SODIUM CHLORIDE 0.9% 1,000 ML IV STA (10:41)
[2019-02-28] MEDS ORDERED: ALBUTEROL/IPRATROPIUM 3 ML NEB RESP TX STA (10:43)
[2019-02-28 10:51] LABS: Basophils % 0.4 % (0.0-0.8); Eosinophils # 0.4 10*3/uL (0.0-0.87); Eosinophils % 3.8 % (0.00-10.9); Hematocrit 29.3 VOL% (42.0-52.0); Hemoglobin 9.6 GM/DL (14.0-18.0); Immature Granulocytes % 0.4 %; Immature Granulocytes Absolute 0.04 #; Lymphocytes # 1.3 10*3/uL (1.4-4.0); Lymphocytes % 13.9 % (21.2-54.2); Mean Corpuscular HGB Conc 32.8 GM/DL (32-36); Mean Corpuscular Volume 94.2 FL (87-102); Mean Platelet Volume 9.5 FL (9.6-12.0); Monocytes % 8.2 % (1.7-12.7); Neutrophils % 73.3 % (38.7-73.9); Platelet Count 455 T/CUMM (130-400); Red Blood Count 3.11 MC/CUMM (3.8-5.5); Red Cell Distribution Width 14.7 % (9.3-17.3); White Blood Count 9.6 T/CUMM (4-12)
[2019-02-28 10:56] LABS: INR 0.9
[2019-02-28 11:09] LABS: Alanine Aminotransferase 46 U/L (16-61); Albumin 3.1 G/DL (3.4-5.0); Alkaline Phosphatase 70 U/L (45-117); Aspartate Amino Transferase 46 U/L (0-37); Blood Urea Nitrogen 21 MG/DL (7-18); Calcium 8.3 MG/DL (8.5-10.1); Glucose 141 MG/DL (74-106); Total Protein 6.2 G/DL (6.4-8.3)
[2019-02-28 12:57] LABS: Apearance,Urine Slightly Hazy (Clear); Bilirubin,Urine Negative (Negative); Blood, Urine Large mg/dL (Negative); Glucose,Urine (UA) 50 mg/dL (Negative); Ketones,Urine Negative (Negative); Nitrite,Urine Negative (Negative); Protein,Urine 100 MG/DL; RBC,Urine 2326 /HPF (0-4); Urine Color Red (Yellow); Urine Urobilinogen < 2.0 EU/DL (0.2-1.0); WBC,Urine 80 /HPF (0-6)
[2019-02-28] MEDS ORDERED: DEXTROSE 50% 25 GM/50 ML VIAL IV PRN (13:12)
[2019-02-28] MEDS ORDERED: GLUCAGON 1 MG VIAL IM PRN (13:12)
[2019-02-28] MEDS ORDERED: MEROPENEM 1,000 MG in SODIUM CHLORIDE 0.9% 100 ML IV STA (13:55)
[2019-02-28] MEDS ORDERED: SODIUM CHLORIDE 0.9% 1,000 ML IV SCH (16:19)
[2019-02-28] MEDS ORDERED: MORPHINE 4 MG/1 ML VIAL IV PRN (16:19)
[2019-02-28] MEDS ORDERED: ONDANSETRON 4 MG/2 ML VIAL IV PRN (16:19)
[2019-02-28] MEDS ORDERED: ACETAMINOPHEN 325 MG TABLET PO PRN (16:19)
[2019-02-28] MEDS ORDERED: OXYBUTYNIN 5 MG TABLET PO PRN (16:19)
[2019-02-28] MEDS ORDERED: ALBUTEROL 2.5 MG/3 ML NEB RESP TX PRN (16:19)
[2019-02-28] MEDS: MEROPENEM 1,000 MG in SODIUM CHLORIDE 0.9% 100 ML IV SCH (18:25)
[2019-02-28] MEDS: ALBUTEROL/IPRATROPIUM 3 ML NEB RESP TX SCH ×2 (19:34→22:32)
[2019-02-28] MEDS: DOCUSATE SODIUM 100 MG CAPSULE PO SCH (20:50)
[2019-02-28] MEDS: FUROSEMIDE 40 MG TABLET PO SCH (20:50)
[2019-02-28] MEDS: METOPROLOL SUCCINATE XL 25 MG TABLET PO SCH (20:57)
[2019-02-28] MEDS ORDERED: SACUBITRIL/VALSARTAN 49-51 MG TABLET PO SCH (21:00)
[2019-02-28] MEDS ORDERED: SPIRONOLACTONE 25 MG TABLET PO SCH (21:00)
[2019-02-28] MEDS ORDERED: DOCUSATE SODIUM 100 MG CAPSULE PO SCH (21:00)
[2019-02-28] MEDS: BUDESONIDE/FORMOTEROL 160-4.5 INHALER 6 GM INH SCH (21:45)
[2019-02-28] MEDS: INSULIN LISPRO 100 UNIT/ML SUBCUT SCH (21:45)
[2019-03-01] MEDS: MEROPENEM 1,000 MG in SODIUM CHLORIDE 0.9% 100 ML IV SCH ×3 (01:26→16:44)
[2019-03-01] MEDS: ALBUTEROL/IPRATROPIUM 3 ML NEB RESP TX SCH ×6 (02:33→20:30)
[2019-03-01 03:52] LABS: Basophils % 0.5 % (0.0-0.8); Eosinophils # 0.3 10*3/uL (0.0-0.87); Eosinophils % 3.1 % (0.00-10.9); Hematocrit 23.9 VOL% (42.0-52.0); Hemoglobin 7.7 GM/DL (14.0-18.0); Immature Granulocytes % 0.4 %; Immature Granulocytes Absolute 0.03 #; Lymphocytes # 1.1 10*3/uL (1.4-4.0); Lymphocytes % 13.4 % (21.2-54.2); Mean Corpuscular HGB Conc 32.2 GM/DL (32-36); Mean Corpuscular Volume 94.8 FL (87-102); Mean Platelet Volume 9.8 FL (9.6-12.0); Monocytes % 11.2 % (1.7-12.7); Neutrophils % 71.4 % (38.7-73.9); Platelet Count 377 T/CUMM (130-400); Red Blood Count 2.52 MC/CUMM (3.8-5.5); Red Cell Distribution Width 14.9 % (9.3-17.3); White Blood Count 8.1 T/CUMM (4-12)
[2019-03-01 04:13] LABS: Albumin 2.4 G/DL (3.4-5.0); Bilirubin,Total 0.9 MG/DL (0.2-1.0); Calcium 8.1 MG/DL (8.5-10.1); Osmolality,Calculated 275.1 MOS/KG (273-304); Total Protein 5.5 G/DL (6.4-8.3)
[2019-03-01] MEDS ORDERED: SODIUM CHLORIDE 0.9% 250 ML IV ONE (06:18)
[2019-03-01 06:49] LABS: RBC,Urine 5876 /HPF (0-4)
[2019-03-01 06:51] LABS: Apearance,Urine CLOUDY (Clear); Bilirubin,Urine Negative (Negative); Glucose,Urine (UA) 150 mg/dL (Negative); Ketones,Urine Negative (Negative); Nitrite,Urine Negative (Negative); Protein,Urine 100 MG/DL; Urine Specific Gravity 1.015 (1.001-1.035)
[2019-03-01 06:52] LABS: Blood, Urine Small mg/dL (Negative); Urine Color Brown (Yellow); Urine Urobilinogen 0.2 EU/DL (0.2-1.0)
[2019-03-01] MEDS ORDERED: SODIUM CHLORIDE 0.9% 1,000 ML IV PRN (08:16)
[2019-03-01 08:44] LABS: Basophils # 0.1 10*3/uL (0.0-0.2); Basophils % 0.6 % (0.0-0.8); Eosinophils # 0.2 10*3/uL (0.0-0.87); Eosinophils % 2.1 % (0.00-10.9); Hematocrit 25.5 VOL% (42.0-52.0); Hemoglobin 8.2 GM/DL (14.0-18.0); Immature Granulocytes % 0.4 %; Immature Granulocytes Absolute 0.05 #; Lymphocytes # 1.2 10*3/uL (1.4-4.0); Mean Corpuscular HGB Conc 32.2 GM/DL (32-36); Mean Corpuscular Volume 94.4 FL (87-102); Mean Platelet Volume 9.6 FL (9.6-12.0); Monocytes % 9.5 % (1.7-12.7); Neutrophils % 77.4 % (38.7-73.9); Platelet Count 399 T/CUMM (130-400); Red Cell Distribution Width 14.8 % (9.3-17.3); White Blood Count 11.5 T/CUMM (4-12)
[2019-03-01] MEDS: INSULIN LISPRO 100 UNIT/ML SUBCUT SCH ×4 (08:45→21:30)
[2019-03-01] MEDS: PANTOPRAZOLE 40 MG TABLET PO SCH (08:46)
[2019-03-01] MEDS: DOCUSATE SODIUM 100 MG CAPSULE PO SCH ×2 (08:46→20:34)
[2019-03-01] MEDS: POTASSIUM CHLORIDE 20 MEQ TABLET PO SCH (08:46)
[2019-03-01] MEDS: BUDESONIDE/FORMOTEROL 160-4.5 INHALER 6 GM INH SCH ×2 (08:46→20:35)
[2019-03-01] MEDS ORDERED: CLOPIDOGREL 75 MG TABLET PO SCH (09:00)
[2019-03-01] MEDS ORDERED: PANTOPRAZOLE 40 MG TABLET PO SCH (09:00)
[2019-03-01] MEDS: ASPIRIN EC 81 MG TABLET PO SCH (11:18)
[2019-03-01] MEDS: METOPROLOL SUCCINATE XL 25 MG TABLET PO SCH ×2 (11:18→21:22)
[2019-03-01] MEDS: MENTHOL/ZINC OXIDE OINT 71 GM JAR TOP SCH ×2 (11:23→20:36)
[2019-03-01] MEDS: FUROSEMIDE 40 MG TABLET PO SCH ×2 (14:05→20:34)
[2019-03-02] MEDS: ALBUTEROL/IPRATROPIUM 3 ML NEB RESP TX SCH ×7 (00:37→23:04)
[2019-03-02] MEDS: MEROPENEM 1,000 MG in SODIUM CHLORIDE 0.9% 100 ML IV SCH ×3 (01:20→18:25)
[2019-03-02 04:28] LABS: Hematocrit 32.1 VOL% (42.0-52.0); Hemoglobin 11.1 GM/DL (14.0-18.0)
[2019-03-02 04:45] LABS: Calcium 8.7 MG/DL (8.5-10.1); Osmolality,Calculated 281.5 MOS/KG (273-304)
[2019-03-02] MEDS: INSULIN LISPRO 100 UNIT/ML SUBCUT SCH ×4 (08:04→21:45)
[2019-03-02] MEDS: INSULIN NPH/REGULAR 70/30 100 UNIT/ML SUBCUT PRN ×2 (08:05→11:52)
[2019-03-02] MEDS: METOPROLOL SUCCINATE XL 25 MG TABLET PO SCH ×2 (10:19→20:39)
[2019-03-02] MEDS: DOCUSATE SODIUM 100 MG CAPSULE PO SCH ×2 (10:35→21:14)
[2019-03-02] MEDS: MENTHOL/ZINC OXIDE OINT 71 GM JAR TOP SCH ×2 (10:35→21:32)
[2019-03-02] MEDS: POTASSIUM CHLORIDE 20 MEQ TABLET PO SCH (10:35)
[2019-03-02] MEDS: BUDESONIDE/FORMOTEROL 160-4.5 INHALER 6 GM INH SCH ×2 (10:36→21:14)
[2019-03-02] MEDS: PANTOPRAZOLE 40 MG TABLET PO SCH (10:36)
[2019-03-02] MEDS: FUROSEMIDE 40 MG TABLET PO SCH ×2 (14:36→21:14)
[2019-03-02] MEDS: ASPIRIN EC 81 MG TABLET PO SCH (14:36)
[2019-03-03] MEDS: MEROPENEM 1,000 MG in SODIUM CHLORIDE 0.9% 100 ML IV SCH ×3 (01:00→17:04)
[2019-03-03] MEDS: ALBUTEROL/IPRATROPIUM 3 ML NEB RESP TX SCH ×6 (02:50→23:20)
[2019-03-03] MEDS: INSULIN NPH/REGULAR 70/30 100 UNIT/ML SUBCUT PRN (06:04)
[2019-03-03 07:51] LABS: Basophils % 0.5 % (0.0-0.8); Eosinophils # 0.4 10*3/uL (0.0-0.87); Eosinophils % 4.8 % (0.00-10.9); Hematocrit 34.1 VOL% (42.0-52.0); Immature Granulocytes % 0.5 %; Immature Granulocytes Absolute 0.04 #; Lymphocytes # 1.1 10*3/uL (1.4-4.0); Lymphocytes % 13.7 % (21.2-54.2); Mean Corpuscular HGB Conc 32.3 GM/DL (32-36); Mean Corpuscular Volume 92.4 FL (87-102); Mean Platelet Volume 9.4 FL (9.6-12.0); Monocytes % 8.6 % (1.7-12.7); Neutrophils % 71.9 % (38.7-73.9); Platelet Count 429 T/CUMM (130-400); Red Blood Count 3.69 MC/CUMM (3.8-5.5); Red Cell Distribution Width 14.8 % (9.3-17.3); White Blood Count 7.8 T/CUMM (4-12)
[2019-03-03] MEDS: INSULIN LISPRO 100 UNIT/ML SUBCUT SCH ×4 (08:00→20:11)
[2019-03-03 08:21] LABS: Albumin 2.6 G/DL (3.4-5.0); Bilirubin,Total 0.5 MG/DL (0.2-1.0); Calcium 8.9 MG/DL (8.5-10.1); Osmolality,Calculated 283.5 MOS/KG (273-304); Total Protein 6.7 G/DL (6.4-8.3)
[2019-03-03] MEDS: FUROSEMIDE 40 MG TABLET PO SCH (08:26)
[2019-03-03] MEDS: POTASSIUM CHLORIDE 20 MEQ TABLET PO SCH (08:29)
[2019-03-03] MEDS: SODIUM CHLORIDE 0.9% 1,000 ML IV SCH (09:57)
[2019-03-03] MEDS: ASPIRIN EC 81 MG TABLET PO SCH (09:58)
[2019-03-03] MEDS: MENTHOL/ZINC OXIDE OINT 71 GM JAR TOP SCH ×2 (09:59→20:12)
[2019-03-03] MEDS: DOCUSATE SODIUM 100 MG CAPSULE PO SCH ×2 (09:59→20:10)
[2019-03-03] MEDS: METOPROLOL SUCCINATE XL 25 MG TABLET PO SCH (10:00)
[2019-03-03] MEDS: BUDESONIDE/FORMOTEROL 160-4.5 INHALER 6 GM INH SCH ×2 (10:00→20:12)
[2019-03-03] MEDS: PANTOPRAZOLE 40 MG TABLET PO SCH (10:00)
[2019-03-03] MEDS: METOPROLOL SUCCINATE XL 50 MG TABLET PO SCH (20:10)
[2019-03-04] MEDS: MEROPENEM 1,000 MG in SODIUM CHLORIDE 0.9% 100 ML IV SCH ×3 (01:26→16:56)
[2019-03-04] MEDS: ALBUTEROL/IPRATROPIUM 3 ML NEB RESP TX SCH ×5 (03:57→19:38)
[2019-03-04 04:42] LABS: Calcium 8.9 MG/DL (8.5-10.1); Osmolality,Calculated 289.8 MOS/KG (273-304)
[2019-03-04 04:44] LABS: Basophils # 0.1 10*3/uL (0.0-0.2); Basophils % 0.7 % (0.0-0.8); Eosinophils # 0.5 10*3/uL (0.0-0.87); Eosinophils % 5.6 % (0.00-10.9); Hematocrit 34.1 VOL% (42.0-52.0); Immature Granulocytes % 0.3 %; Immature Granulocytes Absolute 0.03 #; Lymphocytes # 1.6 10*3/uL (1.4-4.0); Lymphocytes % 18.1 % (21.2-54.2); Mean Corpuscular HGB Conc 32.3 GM/DL (32-36); Mean Corpuscular Volume 92.4 FL (87-102); Mean Platelet Volume 9.6 FL (9.6-12.0); Monocytes % 10.5 % (1.7-12.7); Neutrophils % 64.8 % (38.7-73.9); Platelet Count 450 T/CUMM (130-400); Red Blood Count 3.69 MC/CUMM (3.8-5.5); Red Cell Distribution Width 14.6 % (9.3-17.3); White Blood Count 8.6 T/CUMM (4-12)
[2019-03-04] MEDS: INSULIN NPH/REGULAR 70/30 100 UNIT/ML SUBCUT PRN (05:40)
[2019-03-04] MEDS: PANTOPRAZOLE 40 MG TABLET PO SCH (09:05)
[2019-03-04] MEDS: POTASSIUM CHLORIDE 20 MEQ TABLET PO SCH (09:05)
[2019-03-04] MEDS: DOCUSATE SODIUM 100 MG CAPSULE PO SCH ×2 (09:05→21:27)
[2019-03-04] MEDS: METOPROLOL SUCCINATE XL 50 MG TABLET PO SCH ×2 (09:05→21:27)
[2019-03-04] MEDS: ROSUVASTATIN 20 MG TABLET PO SCH (09:05)
[2019-03-04] MEDS: INSULIN LISPRO 100 UNIT/ML SUBCUT SCH ×4 (09:08→22:45)
[2019-03-04] MEDS: BUDESONIDE/FORMOTEROL 160-4.5 INHALER 6 GM INH SCH ×2 (11:50→21:27)
[2019-03-04] MEDS: MENTHOL/ZINC OXIDE OINT 71 GM JAR TOP SCH ×2 (11:50→21:27)
[2019-03-04] MEDS: SODIUM CHLORIDE 0.9% 1,000 ML IV SCH (15:35)
[2019-03-05] MEDS: MEROPENEM 1,000 MG in SODIUM CHLORIDE 0.9% 100 ML IV SCH ×3 (00:20→17:51)
[2019-03-05] MEDS: ALBUTEROL/IPRATROPIUM 3 ML NEB RESP TX SCH ×2 (00:27→04:10)
[2019-03-05 04:44] LABS: Basophils # 0.1 10*3/uL (0.0-0.2); Basophils % 0.8 % (0.0-0.8); Eosinophils # 0.6 10*3/uL (0.0-0.87); Eosinophils % 7.2 % (0.00-10.9); Hematocrit 33.8 VOL% (42.0-52.0); Immature Granulocytes % 0.4 %; Immature Granulocytes Absolute 0.03 #; Lymphocytes # 1.6 10*3/uL (1.4-4.0); Lymphocytes % 20.2 % (21.2-54.2); Mean Corpuscular HGB Conc 32.5 GM/DL (32-36); Mean Corpuscular Volume 93.1 FL (87-102); Mean Platelet Volume 9.3 FL (9.6-12.0); Monocytes % 10.8 % (1.7-12.7); Neutrophils % 60.6 % (38.7-73.9); Platelet Count 442 T/CUMM (130-400); Red Blood Count 3.63 MC/CUMM (3.8-5.5); Red Cell Distribution Width 14.3 % (9.3-17.3); White Blood Count 7.7 T/CUMM (4-12)
[2019-03-05 05:11] LABS: Calcium 8.6 MG/DL (8.5-10.1); Osmolality,Calculated 287.2 MOS/KG (273-304)
[2019-03-05] MEDS ORDERED: ALBUTEROL/IPRATROPIUM 3 ML NEB RESP TX PRN (06:59)
[2019-03-05] MEDS ORDERED: FUROSEMIDE 40 MG/4 ML VIAL IV SCH (09:30)
[2019-03-05] MEDS: INSULIN LISPRO 100 UNIT/ML SUBCUT SCH ×4 (09:35→21:16)
[2019-03-05] MEDS: SACUBITRIL/VALSARTAN 49-51 MG TABLET PO SCH (09:35)
[2019-03-05] MEDS: POTASSIUM CHLORIDE 20 MEQ TABLET PO SCH (09:36)
[2019-03-05] MEDS: METOPROLOL SUCCINATE XL 50 MG TABLET PO SCH ×2 (09:36→21:18)
[2019-03-05] MEDS: ROSUVASTATIN 20 MG TABLET PO SCH (09:36)
[2019-03-05] MEDS: DOCUSATE SODIUM 100 MG CAPSULE PO SCH ×2 (09:36→21:16)
[2019-03-05] MEDS: PANTOPRAZOLE 40 MG TABLET PO SCH (09:36)
[2019-03-05] MEDS: MENTHOL/ZINC OXIDE OINT 71 GM JAR TOP SCH ×2 (09:37→21:16)
[2019-03-05] MEDS: BUDESONIDE/FORMOTEROL 160-4.5 INHALER 6 GM INH SCH ×2 (09:37→21:16)
[2019-03-05] MEDS: SODIUM CHLORIDE 0.9% 1,000 ML IV SCH (10:19)
[2019-03-06] MEDS: MEROPENEM 1,000 MG in SODIUM CHLORIDE 0.9% 100 ML IV SCH ×3 (00:31→16:57)
[2019-03-06] MEDS: INSULIN LISPRO 100 UNIT/ML SUBCUT SCH ×6 (00:43→21:27)
[2019-03-06 03:02] LABS: Basophils # 0.1 10*3/uL (0.0-0.2); Basophils % 0.7 % (0.0-0.8); Eosinophils # 0.6 10*3/uL (0.0-0.87); Eosinophils % 6.4 % (0.00-10.9); Hematocrit 36.2 VOL% (42.0-52.0); Hemoglobin 11.7 GM/DL (14.0-18.0); Immature Granulocytes % 0.5 %; Immature Granulocytes Absolute 0.04 #; Lymphocytes # 1.8 10*3/uL (1.4-4.0); Lymphocytes % 20.1 % (21.2-54.2); Mean Corpuscular HGB Conc 32.3 GM/DL (32-36); Mean Corpuscular Volume 93.3 FL (87-102); Monocytes % 11.4 % (1.7-12.7); Neutrophils % 60.9 % (38.7-73.9); Platelet Count 463 T/CUMM (130-400); Red Blood Count 3.88 MC/CUMM (3.8-5.5); White Blood Count 8.9 T/CUMM (4-12)
[2019-03-06 03:23] LABS: Calcium 8.7 MG/DL (8.5-10.1); Osmolality,Calculated 285.7 MOS/KG (273-304)
[2019-03-06] MEDS: SACUBITRIL/VALSARTAN 49-51 MG TABLET PO SCH (09:16)
[2019-03-06] MEDS: DOCUSATE SODIUM 100 MG CAPSULE PO SCH ×2 (09:20→21:26)
[2019-03-06] MEDS: METOPROLOL SUCCINATE XL 50 MG TABLET PO SCH ×2 (09:20→21:27)
[2019-03-06] MEDS: POTASSIUM CHLORIDE 20 MEQ TABLET PO SCH (09:20)
[2019-03-06] MEDS: MENTHOL/ZINC OXIDE OINT 71 GM JAR TOP SCH ×2 (09:20→21:27)
[2019-03-06] MEDS: PANTOPRAZOLE 40 MG TABLET PO SCH (09:20)
[2019-03-06] MEDS: ROSUVASTATIN 20 MG TABLET PO SCH (09:20)
[2019-03-06] MEDS: BUDESONIDE/FORMOTEROL 160-4.5 INHALER 6 GM INH SCH ×2 (09:20→21:27)
[2019-03-06] MEDS: INSULIN NPH/REGULAR 70/30 100 UNIT/ML SUBCUT PRN (12:20)
[2019-03-07] MEDS: INSULIN LISPRO 100 UNIT/ML SUBCUT SCH ×7 (02:15→21:40)
[2019-03-07] MEDS: MEROPENEM 1,000 MG in SODIUM CHLORIDE 0.9% 100 ML IV SCH ×2 (02:53→19:36)
[2019-03-07 05:18] LABS: Basophils # 0.1 10*3/uL (0.0-0.2); Basophils % 0.9 % (0.0-0.8); Eosinophils # 0.5 10*3/uL (0.0-0.87); Eosinophils % 5.9 % (0.00-10.9); Hematocrit 33.4 VOL% (42.0-52.0); Hemoglobin 10.9 GM/DL (14.0-18.0); Immature Granulocytes % 0.4 %; Immature Granulocytes Absolute 0.03 #; Lymphocytes # 1.5 10*3/uL (1.4-4.0); Lymphocytes % 19.6 % (21.2-54.2); Mean Corpuscular HGB Conc 32.6 GM/DL (32-36); Mean Corpuscular Volume 94.1 FL (87-102); Mean Platelet Volume 9.5 FL (9.6-12.0); Neutrophils % 65.2 % (38.7-73.9); Platelet Count 454 T/CUMM (130-400); Red Blood Count 3.55 MC/CUMM (3.8-5.5); Red Cell Distribution Width 14.2 % (9.3-17.3); White Blood Count 7.8 T/CUMM (4-12)
[2019-03-07 05:28] LABS: Calcium 8.4 MG/DL (8.5-10.1); Osmolality,Calculated 284.8 MOS/KG (273-304)
[2019-03-07] MEDS: POTASSIUM CHLORIDE 20 MEQ TABLET PO SCH (09:08)
[2019-03-07] MEDS: PANTOPRAZOLE 40 MG TABLET PO SCH (09:08)
[2019-03-07] MEDS: ROSUVASTATIN 20 MG TABLET PO SCH (09:08)
[2019-03-07] MEDS: DOCUSATE SODIUM 100 MG CAPSULE PO SCH ×2 (09:09→20:35)
[2019-03-07] MEDS: SACUBITRIL/VALSARTAN 49-51 MG TABLET PO SCH (09:09)
[2019-03-07] MEDS: METOPROLOL SUCCINATE XL 50 MG TABLET PO SCH ×2 (09:10→20:36)
[2019-03-07] MEDS: BUDESONIDE/FORMOTEROL 160-4.5 INHALER 6 GM INH SCH ×2 (09:10→20:35)
[2019-03-07] MEDS: MENTHOL/ZINC OXIDE OINT 71 GM JAR TOP SCH ×2 (09:48→20:35)
[2019-03-08] MEDS: INSULIN LISPRO 100 UNIT/ML SUBCUT SCH ×3 (01:15→09:02)
[2019-03-08 04:56] LABS: Basophils # 0.1 10*3/uL (0.0-0.2); Basophils % 0.9 % (0.0-0.8); Eosinophils # 0.4 10*3/uL (0.0-0.87); Eosinophils % 4.7 % (0.00-10.9); Hematocrit 35.1 VOL% (42.0-52.0); Hemoglobin 11.5 GM/DL (14.0-18.0); Immature Granulocytes % 0.3 %; Immature Granulocytes Absolute 0.02 #; Lymphocytes # 1.5 10*3/uL (1.4-4.0); Lymphocytes % 19.7 % (21.2-54.2); Mean Corpuscular HGB Conc 32.8 GM/DL (32-36); Mean Corpuscular Volume 93.1 FL (87-102); Mean Platelet Volume 9.8 FL (9.6-12.0); Monocytes % 7.4 % (1.7-12.7); Platelet Count 451 T/CUMM (130-400); Red Blood Count 3.77 MC/CUMM (3.8-5.5); White Blood Count 7.5 T/CUMM (4-12)
[2019-03-08 05:21] LABS: Calcium 8.3 MG/DL (8.5-10.1); Osmolality,Calculated 293.1 MOS/KG (273-304)
[2019-03-08 08:38] VITALS: BP 95/46
[2019-03-08] MEDS ORDERED: FUROSEMIDE 40 MG TABLET PO SCH (09:00)
[2019-03-08] MEDS: DOCUSATE SODIUM 100 MG CAPSULE PO SCH (09:01)
[2019-03-08] MEDS: SACUBITRIL/VALSARTAN 49-51 MG TABLET PO SCH (09:01)
[2019-03-08] MEDS: ROSUVASTATIN 20 MG TABLET PO SCH (09:01)
[2019-03-08] MEDS: POTASSIUM CHLORIDE 20 MEQ TABLET PO SCH (09:01)
[2019-03-08] MEDS: PANTOPRAZOLE 40 MG TABLET PO SCH (09:02)
[2019-03-08] MEDS: METOPROLOL SUCCINATE XL 50 MG TABLET PO SCH (10:56)
[2019-03-08] MEDS: MENTHOL/ZINC OXIDE OINT 71 GM JAR TOP SCH (10:57)
[2019-03-08] MEDS: BUDESONIDE/FORMOTEROL 160-4.5 INHALER 6 GM INH SCH (10:57)
== END 2019-03-08 12:50 | disposition home health service (06) | DRG 696 ==
LOC: EDBD → EDUNIT# → N.ED 10:19 → N.EDINP 13:56 → N.5E 15:20 → N.ICU 18:08 → N.TELEN 03-03 20:40
PROVIDERS: ADMIT Family Medicine; ATTEND Family Medicine